=== PATIENT | female | born 1945 | race Caucasian/White ===

== ENCOUNTER → 2016-11-26 | Outpatient (CLI) | payer MEDICARE, OTHER ==
[2016-11-26 14:09] VITALS: BP 127/73; PULSE 71; RESP 18; TEMP 97.9
--- NOTE | 2016-11-26 14:26 | P.PN ---
Progress Note - Text Patient returns for followup for chronic back, buttock, and LLE (down to toes) pain with numbness/tingling. Patient has been absent from our clinic due to having arthroscopic knee surgery but has finished with PT. Patient recently underwent L L4 + L5 TFESI and cluneal nerve block, the latter of which she believes helped her more. Patient continues on [place] medications for pain from PCP with good relief. Patient denies adverse drug effects from medications. Today, pt denies new-onset weakness, bowel/bladder incontinence, or any other signs or symptoms of cauda equina syndrome. There are no signs of acute intoxication, and no indications of medication diversion or overuse. In addition to above, 13-point review of systems is also negative for chest pain , shortness of breath, changes in vision, changes in hearing, new onset weakness , abdominal pain, diarrhea, extreme fatigue, malaise, fever, skin changes, homicidal or suicidal ideation, or bowel or bladder incontinence. Vital Signs: Reviewed in EMR Gen: WDWN, AAOx3, NAD HEENT: NCAT, EOMI, hearing grossly normal Pulm: resp unlabored Abd: soft, NT, ND Neck: supple, trachea midline ROM in flexion lumbar spine: reduced ROM in extension lumbar spine: reduced Lumbar paravertebral tenderness: + Facet loading: + L side SI joint tenderness: + L side Willam's test: + L side, neg R side Straight leg raise: neg bilateral Neuro: CN II-XII grossly intact, muscle strength lower extremities PRESERVED Imaging: Reviewed in EMR Assessment: 1. cluneal neuralgia 2. lumbar radiculopathy 3. lumbar PLPS Plan: 1. Explanation: Opioid and psychological risk scores were reviewed. Diagnoses , prognoses, and multiple treatment options including but not limited to physical therapy, interventional therapies, adjuvant medical therapies, narcotic medication therapies, and surgery were discussed with the patient and all questions were answered to the patient's satisfaction. 2. Opioid agreement: no opioids prescribed today 3. Counseling: The patient was counseled extensively on BODY MASS INDEX, EXERCISE. Specifically, the patient was instructed regarding the importance of smoking cessation, obesity, and exercise in the context of both chronic pain and overall health. 4. Procedures: left superior cluneal nerve blocks 5. Consultations: None 6. Investigations: None 7. Medications: none prescribed 8. Disposition: f/u for procedure as scheduled PQRS measures: 1-Patient's medications are documented in the chart. 2-Tobacco use is negative 3-Patient has not had a pneumococcal vaccine. 4-Advanced care planning discussed, patient unable to give. 5-Opioid contract NOT signed with the patient. 6-Pain positive, follow-up visit or procedure scheduled 7-Patient's blood pressure measured and documented, and patient will follow up with the primary care due to hypertension. 8-Patient's weight was measured, and body mass index ABOVE the normal limits, and counseling was done. Patient instructed to follow up with PCP. 9-Patient WAS NOT identified as an unhealthy alcohol user.
== END ==
LOC: PNWHC3 13:49
PROVIDERS: ATTEND Anesthesiology
DX: M54.16 Radiculopathy, lumbar region (principal); G58.8 Other specified mononeuropathies; G97.1 Other reaction to spinal and lumbar puncture; Z87.891 Personal history of nicotine dependence
CPT/HCPCS: 99211

== ENCOUNTER 2017-01-01 09:57 | Day surgery (SDC) | payer MEDICARE, OTHER ==
[2016-12-27 15:53] VITALS: BMI 31.4
[~2017-01-01 09:57] MED LIST: LACTATED RINGERS 1,000 ML IV SCH
[2017-01-01 10:23] VITALS: RESP 16; TEMP 98
[2017-01-01] MEDS ORDERED: LIDOCAINE 1% 20 ML VIAL (10MG/ML) FOR IV START INTRADERMA ONE (10:33)
[2017-01-01] MEDS ORDERED: TRIAMCINOLONE ACETONIDE 40 MG/ML 1 ML VIAL ONE (10:37)
[2017-01-01] MEDS ORDERED: fentaNYL (PF) 50 MCG/ML 2 ML AMP ONE (10:37)
[2017-01-01] MEDS ORDERED: MIDAZOLAM 2 MG/2 ML VIAL ONE (10:37)
[2017-01-01] MEDS ORDERED: BUPIVACAINE (PF) 0.5% 30 ML VIAL ONE (10:37)
--- NOTE | 2017-01-01 11:10 | FL ---
Fluoroscopy HISTORY: Pain 7 seconds fluoroscopy time supplied to the referring clinician. 7 intraoperative C-arm images docume nt the procedure. See dictated report from anesthesia.
[2017-01-01 11:15] VITALS: BP 129/74; PULSE 61
[2017-01-01] MEDS ORDERED: IV FLUID CONTINUATION 1,000 ML IV ONE (11:15)
--- NOTE | 2017-01-01 14:33 | P.PCN ---
Date of Procedure: 01/01/17 Preoperative Diagnosis: Postoperative Diagnosis: Procedure(s) Performed: Implants: Surgeon: Nilo Jackson Pathology: none sent Condition: stable Disposition: PACU Indications for Procedure: Operative Findings: Description of Procedure: PREOPERATIVE DIAGNOSIS: Cluneal nerve entrapment and neuralgia, left side. POSTOPERATIVE DIAGNOSIS: same PROCEDURE Left superior cluneal nerve steroid injection under fluoroscopic guidance. Fluoroscopy was used to optimize visualization and maximize patient's safety. ANESTHESIA: Local with 1% lidocaine; IV sedation with Versed and fentanyl EBL: Minimal PROCEDURE INDICATION: The patient with left hip and buttock pain that has been unresponsive to conservative management. Patient presents for left superior cluneal NB today; no use of blood thinners. PROCEDURE DESCRIPTION / TECHNIQUE: The patient was seen and identified in the preoperative area. Risks, benefits, complications, and alternatives were discussed with the patient, with risks including but not limited to bleeding, infection, nerve damage, incomplete pain relief, and ALLERGIC reactions to medications. The patient agreed to proceed with the procedure and signed the consent after all questions were answered. IV was started, and vital signs were stable. Patient was taken to the OR and time out was completed to verify proper patient , proper procedure, laterality pain, and ALLERGIES to medications. The patient was placed in the prone position on procedure table and a pillow was placed under the abdomen to reduce lumbar lordosis. The lumbosacral area on the left side was prepped and draped in the usual sterile fashion. Critical pause was taken. Vital signs were closely monitored during the procedure. Conscious sedation was used during the procedure to decrease patients anxiety. Using anterior-posterior fluoroscopy, the left iliac crest was identified and the skin over this site was marked and then infiltrated with 1% lidocaine subcutaneously. Subsequently, a 22-gauge 3.5-inch spinal needle was inserted and advanced toward the top of the iliac crest guided by AP and lateral fluoroscopy. Once contact was made with periosteum, aspiration was performed, which was negative, and 1 ml of a 8 ml mixture containing 40 mg of Kenalog and 7 ml of preservative free bupivacaine 0.5% solution was injected. The needle was then walked along the top of the iliac crest in both medial and lateral directions, and the remainder of the medication was injected in 1 ml increments after negative aspirations and in the absence of paresthesias at seven other locations atop the iliac crest as viewed on fluoroscopy. After completion of the procedure, needle was withdrawn intact, skin was cleansed, and bandages were applied. COMPLICATIONS: None COMMENTS: DISPOSITION / PLANS: The patient was placed in a supine position and transferred to the recovery area in a stable condition for observation. There was no evidence of lower extremity motor or sensory deficit after the procedure. Patient was discharged from the recovery room after meeting discharge criteria. Home discharge instructions were given to the patient by the staff. The patient was reexamined prior to discharge. The patient will schedule a repeat left superior cluneal nerve block in 4-6 weeks.
== END 2017-01-01 11:22 | disposition home or self-care (01) ==
LOC: ORPAIN 09:57
PROVIDERS: ATTEND Anesthesiology
DX: G89.29 Other chronic pain (principal); G58.8 Other specified mononeuropathies; Z79.891 Long term (current) use of opiate analgesic; Z79.899 Other long term (current) drug therapy; Z88.0 Allergy status to penicillin
CPT/HCPCS: 64450; J2250; J3301; J3010

== ENCOUNTER 2017-01-23 09:28 | Day surgery (SDC) | payer MEDICARE, OTHER ==
[2017-01-17 16:19] VITALS: BMI 31.4
[2017-01-23 09:37] VITALS: TEMP 98.2
[2017-01-23] MEDS ORDERED: LIDOCAINE 1% 20 ML VIAL (10MG/ML) FOR IV START INTRADERMA ONE (09:40)
--- NOTE | 2017-01-23 10:28 | P.PCN ---
Date of Procedure: 01/23/17 Preoperative Diagnosis: Low back pain and left cluneal nerve entrapment syndrome Postoperative Diagnosis: Same as above Procedure(s) Performed: Left superior cluneal nerve block under fluoroscopic guidance Implants: Anesthesia: other (Local with moderate sedation) Surgeon: Lavonne Ruth Pathology: none sent Condition: stable Disposition: PACU Indications for Procedure: Operative Findings: Description of Procedure: The patient was seen in preop holding area consent was obtained and this was brought into the procedure when placed in prone position. Skin was prepped with Betadine 3 and draped in a sterile manner. Lidocaine 1% was used to numb the skin up at the target point that was chosen as follows: The T8 crest was identified on the AP view of fluoroscopy on the left side of the spine and then it point about 9 cm lateral to the spinous processes at the iliac crest level was identified which corresponds to the superior edge of the iliac crest on the left side. I then used 22-gauge 3-1/2 inch Qu[place]ke spinal needle to go through the skin and to The Periosteum at the Iliac Crest and Then Injected 9 mls of Marcaine 0.25% +40 Mg of Kenalog. Patient tolerated procedure well.
[2017-01-23] MEDS ORDERED: IV FLUID CONTINUATION 600 ML IV ONE (10:35)
[2017-01-23 10:50] VITALS: BP 126/71; PULSE 63; RESP 16
--- NOTE | 2017-01-24 16:04 | FL ---
Fluoroscopy HISTORY: Pain 3 seconds fluoroscopy time supplied to the referring clinician. 2 intraoperative C-arm images docume nt the procedure. See dictated report from anesthesia.
== END 2017-01-23 11:00 | disposition home or self-care (01) ==
LOC: ORPAIN 09:28
PROVIDERS: ATTEND Anesthesiology
DX: M54.5 Low back pain (principal); G58.8 Other specified mononeuropathies; I10 Essential (primary) hypertension; Z88.0 Allergy status to penicillin
CPT/HCPCS: 64450; 99152; J2250; J3301; J3010

== ENCOUNTER → 2017-03-11 | Outpatient (CLI) | payer MEDICARE, OTHER ==
[2017-03-11 10:46] VITALS: BP 151/85; PULSE 62; RESP 16; TEMP 97.9
--- NOTE | 2017-03-11 11:03 | P.PN ---
Progress Note - Text Patient returns for followup for chronic back, buttock pain. Patient recently underwent left superior cluneal nerve block x 2 with excellent relief. Patient continues on [place] medications for pain from PCP with good relief. Patient denies adverse drug effects from medications. Today, pt denies new-onset weakness, bowel/bladder incontinence, or any other signs or symptoms of cauda equina syndrome. There are no signs of acute intoxication, and no indications of medication diversion or overuse. In addition to above, 13-point review of systems is also negative for chest pain , shortness of breath, changes in vision, changes in hearing, new onset weakness , abdominal pain, diarrhea, extreme fatigue, malaise, fever, skin changes, homicidal or suicidal ideation, or bowel or bladder incontinence. Vital Signs: Reviewed in EMR Gen: WDWN, AAOx3, NAD HEENT: NCAT, EOMI, hearing grossly normal Pulm: resp unlabored Abd: soft, NT, ND Neck: supple, trachea midline ROM in flexion lumbar spine: reduced ROM in extension lumbar spine: reduced Lumbar paravertebral tenderness: + Facet loading: + L side SI joint tenderness: + L side Willam's test: + L side, neg R side Straight leg raise: neg bilateral Neuro: CN II-XII grossly intact, muscle strength lower extremities PRESERVED Imaging: Reviewed in EMR Assessment: 1. cluneal neuralgia 2. lumbar radiculopathy 3. lumbar PLPS Plan: 1. Explanation: Opioid and psychological risk scores were reviewed. Diagnoses , prognoses, and multiple treatment options including but not limited to physical therapy, interventional therapies, adjuvant medical therapies, narcotic medication therapies, and surgery were discussed with the patient and all questions were answered to the patient's satisfaction. 2. Opioid agreement: no opioids prescribed today 3. Counseling: The patient was counseled extensively on BODY MASS INDEX, EXERCISE. Specifically, the patient was instructed regarding the importance of smoking cessation, obesity, and exercise in the context of both chronic pain and overall health. 4. Procedures: repeat left superior cluneal nerve block in 8 weeks 5. Consultations: None 6. Investigations: None 7. Medications: none prescribed 8. Disposition: f/u for procedure as scheduled PQRS measures: 1-Patient's medications are documented in the chart. 2-Tobacco use is negative 3-Patient has not had a pneumococcal vaccine. 4-Advanced care planning discussed, patient unable to give. 5-Opioid contract NOT signed with the patient. 6-Pain positive, follow-up visit or procedure scheduled 7-Patient's blood pressure measured and documented, and patient will follow up with the primary care due to hypertension. 8-Patient's weight was measured, and body mass index ABOVE the normal limits, and counseling was done. Patient instructed to follow up with PCP. 9-Patient WAS NOT identified as an unhealthy alcohol user.
== END ==
LOC: PNWHC3 10:02
PROVIDERS: ATTEND Anesthesiology
DX: M54.16 Radiculopathy, lumbar region (principal); G58.8 Other specified mononeuropathies; Z79.891 Long term (current) use of opiate analgesic
CPT/HCPCS: 99211

== ENCOUNTER → 2017-03-11 | Outpatient (CLI) | payer MEDICARE, OTHER ==
--- NOTE | 2017-03-13 12:13 | MM ---
Reason for exam: screening (asymptomatic). Last mammogram was performed 1 year and 2 months ago. History: Patient is postmenopausal. Family history of breast cancer in cousin at age 30 and breast cancer in aunt at age 60. Benign excisional biopsy of the right breast. Took estrogen for 3 years 9 months beginning at age 33. Physical Findings: A clinical breast exam by your physician is recommended on an annual basis and results should be correlated with mammographic findings. MG 3D Screening Mammo W/Cad Bilateral CC and MLO view(s) were taken. Prior study comparison: January 05, 2016, bilateral MG 3d screening mammo w/cad. November 09, 2010, bilateral digital screening mammo w/CAD. There are scattered fibroglandular densities. No suspicious abnormality. Stable upper outer quadrant focal asymmetry on right breast. No significant changes when compared with prior studies. ASSESSMENT: Benign, BI-RAD 2 RECOMMENDATION: Routine screening mammogram of both breasts in 1 year.
== END | disposition home or self-care (01) ==
LOC: RADMAMWWP 11:16
PROVIDERS: ATTEND Internal Medicine
DX: Z12.31 Encounter for screening mammogram for malignant neoplasm of breast (principal)
CPT/HCPCS: 77063; G0202

== ENCOUNTER → 2017-06-09 | Outpatient (CLI) | payer MEDICARE, OTHER ==
[2017-06-09 13:11] VITALS: BP 152/81; PULSE 85; RESP 16
--- NOTE | 2017-06-09 13:24 | P.PN ---
Progress Note - Text Progress Note Date: 06/09/17 This is a 72-year-old female with history of lumbar surgery and axial lower back pain. The patient denies any weakness in the lower extremities or any bowel or bladder dysfunction. She also denies any paresthesia in the lower extremities. Her lower back pain has improved significantly after the cluneal nerve injections. She is alert oriented 3 in no apparent distress. We will follow up with the patient as needed in the future. PQRS measures: 1-Patient's medications are documented in the chart. 2-Tobacco use is negative, counseling given 3-Patient has had a pneumococcal vaccine. 4-Advanced care planning discussed, patient unable to give 5-Opioid contract : We do not prescribe opioids to the patient 6-Pain positive, follow-up visit or procedure scheduled 7-Patient's blood pressure measured and documented within normal limits. 8-Patient's weight was measured, and body mass index ABOVE the normal limits, and counseling was done. Patient instructed to follow up with PCP. 9-Patient WAS NOT identified as an unhealthy alcohol user.
== END | disposition home or self-care (01) ==
LOC: PNWHC3 12:51
PROVIDERS: ATTEND Anesthesiology
DX: M54.5 Low back pain (principal)
CPT/HCPCS: 99211

== ENCOUNTER 2017-08-06 09:25 | Day surgery (SDC) | payer MEDICARE, OTHER ==
[2017-07-31 13:14] VITALS: BMI 32.5
[2017-08-06] MEDS ORDERED: LACTATED RINGERS 1,000 ML IV SCH (10:15)
[2017-08-06] MEDS ORDERED: LIDOCAINE 1% 20 ML VIAL (10MG/ML) FOR IV START INTRADERMA ONE (10:47)
[2017-08-06 10:49] VITALS: RESP 18; TEMP 98.3
--- NOTE | 2017-08-06 11:00 | P.PCN ---
Date of Procedure: 08/06/17 Surgeon: Nilo Jackson Pathology: none sent Condition: stable Disposition: PACU Description of Procedure: PREOPERATIVE DIAGNOSIS: Cluneal nerve entrapment and neuralgia, left side. POSTOPERATIVE DIAGNOSIS: same PROCEDURE Left superior cluneal nerve steroid injection under fluoroscopic guidance. Fluoroscopy was used to optimize visualization and maximize patient's safety. ANESTHESIA: Local with 1% lidocaine; IV sedation with Versed and fentanyl EBL: Minimal PROCEDURE INDICATION: The patient with left hip and buttock pain that has been unresponsive to conservative management. Patient presents for left superior cluneal NB today; no use of blood thinners. Three months' relief from last SCNB. PROCEDURE DESCRIPTION / TECHNIQUE: The patient was seen and identified in the preoperative area. Risks, benefits, complications, and alternatives were discussed with the patient, with risks including but not limited to bleeding, infection, nerve damage, incomplete pain relief, and allergic reactions to medications. The patient agreed to proceed with the procedure and signed the consent after all questions were answered. IV was started, and vital signs were stable. Patient was taken to the OR and time out was completed to verify proper patient , proper procedure, laterality pain, and allergies to medications. The patient was placed in the prone position on procedure table and a pillow was placed under the abdomen to reduce lumbar lordosis. The lumbosacral area on the left side was prepped and draped in the usual sterile fashion. Critical pause was taken. Vital signs were closely monitored during the procedure. Conscious sedation was used during the procedure to decrease patients anxiety. Using anterior-posterior fluoroscopy, the left iliac crest was identified and the skin over this site was marked and then infiltrated with 1% lidocaine subcutaneously. Subsequently, a 22-gauge 3.5-inch spinal needle was inserted and advanced toward the top of the iliac crest guided by AP and lateral fluoroscopy. Once contact was made with periosteum, aspiration was performed, which was negative, and 1 ml of a 8 ml mixture containing 40 mg of Kenalog and 7 ml of preservative free bupivacaine 0.5% solution was injected. The needle was then walked along the top of the iliac crest in both medial and lateral directions, and the remainder of the medication was injected in 1 ml increments after negative aspirations and in the absence of paresthesias at seven other locations atop the iliac crest as viewed on fluoroscopy. After completion of the procedure, needle was withdrawn intact, skin was cleansed, and bandages were applied. COMPLICATIONS: None COMMENTS: DISPOSITION / PLANS: The patient was placed in a supine position and transferred to the recovery area in a stable condition for observation. There was no evidence of lower extremity motor or sensory deficit after the procedure. Patient was discharged from the recovery room after meeting discharge criteria. Home discharge instructions were given to the patient by the staff. The patient was reexamined prior to discharge. The patient will schedule a follow-up in clinic in 4-6 weeks to discuss recent left lower extremity pain.
[2017-08-06 11:28] VITALS: PULSE 70
[2017-08-06 11:50] VITALS: BP 103/58
[2017-08-06] MEDS ORDERED: IV FLUID CONTINUATION 950 ML IV ONE (11:51)
--- NOTE | 2017-08-06 13:13 | FL ---
Fluoroscopy HISTORY: Pain 4 seconds fluoroscopy time supplied to the referring clinician. 7 intraoperative C-arm images docume nt the procedure. See dictated report from anesthesia.
== END 2017-08-06 11:55 | disposition home or self-care (01) ==
LOC: ORPAIN 09:25
PROVIDERS: ATTEND Anesthesiology
DX: G89.29 Other chronic pain (principal); I10 Essential (primary) hypertension; Z91.09 Other allergy status, other than to drugs and biological substances
CPT/HCPCS: 64450; J2250; J3301; J3010

== ENCOUNTER → 2017-09-01 | Outpatient (CLI) | payer MEDICARE, OTHER ==
[2017-09-01 14:25] VITALS: BP 151/80; PULSE 74; RESP 16; TEMP 98
--- NOTE | 2017-09-01 14:45 | P.PN ---
Progress Note - Text Progress Note Date: 09/01/17 Patient returns for followup for chronic back, buttock pain. Patient recently underwent left superior cluneal nerve block x 2 with excellent relief. Patient continues on [place] medications for pain from PCP with good relief. Patient denies adverse drug effects from medications. Today, pt denies new-onset weakness, bowel/bladder incontinence, or any other signs or symptoms of cauda equina syndrome. There are no signs of acute intoxication, and no indications of medication diversion or overuse. In addition to above, 13-point review of systems is also negative for chest pain , shortness of breath, changes in vision, changes in hearing, new onset weakness , abdominal pain, diarrhea, extreme fatigue, malaise, fever, skin changes, homicidal or suicidal ideation, or bowel or bladder incontinence. Vital Signs: Reviewed in EMR Gen: WDWN, AAOx3, NAD HEENT: NCAT, EOMI, hearing grossly normal Pulm: resp unlabored Abd: soft, NT, ND Neck: supple, trachea midline ROM in flexion lumbar spine: reduced ROM in extension lumbar spine: reduced Lumbar paravertebral tenderness: + Facet loading: + L side SI joint tenderness: + L side Willam's test: + L side, neg R side Straight leg raise: neg bilateral Neuro: CN II-XII grossly intact, muscle strength lower extremities PRESERVED Imaging: Reviewed in EMR Assessment: 1. cluneal neuralgia 2. lumbar radiculopathy 3. lumbar PLPS Plan: 1. Explanation: Opioid and psychological risk scores were reviewed. Diagnoses , prognoses, and multiple treatment options including but not limited to physical therapy, interventional therapies, adjuvant medical therapies, narcotic medication therapies, and surgery were discussed with the patient and all questions were answered to the patient's satisfaction. 2. Opioid agreement: no opioids prescribed today 3. Counseling: The patient was counseled extensively on BODY MASS INDEX, EXERCISE. Specifically, the patient was instructed regarding the importance of smoking cessation, obesity, and exercise in the context of both chronic pain and overall health. 4. Procedures: repeat left superior cluneal nerve block in 8 weeks 5. Consultations: None 6. Investigations: None 7. Medications: none prescribed 8. Disposition: f/u for procedure as scheduled; will plan to repeat L SCNB for patient approximately every 12 weeks PQRS measures: 1-Patient's medications are documented in the chart. 2-Tobacco use is negative 3-Patient has not had a pneumococcal vaccine. 4-Advanced care planning discussed, patient unable to give. 5-Opioid contract NOT signed with the patient. 6-Pain positive, follow-up visit or procedure scheduled 7-Patient's blood pressure measured and documented, and patient will follow up with the primary care due to hypertension. 8-Patient's weight was measured, and body mass index ABOVE the normal limits, and counseling was done. Patient instructed to follow up with PCP. 9-Patient WAS NOT identified as an unhealthy alcohol user.
== END | disposition home or self-care (01) ==
LOC: PNWHC3 14:05
PROVIDERS: ATTEND Anesthesiology
DX: G89.29 Other chronic pain (principal); M54.9 Dorsalgia, unspecified; M54.16 Radiculopathy, lumbar region; G97.1 Other reaction to spinal and lumbar puncture; Z79.891 Long term (current) use of opiate analgesic
CPT/HCPCS: 99211

== ENCOUNTER 2017-11-24 06:25 | Day surgery (SDC) | payer MEDICARE, OTHER ==
[2017-11-20 11:41] VITALS: BMI 30.7
[2017-11-24 07:16] VITALS: TEMP 96.8
[2017-11-24] MEDS ORDERED: LIDOCAINE 1% 20 ML VIAL (10MG/ML) FOR IV START INTRADERMA ONE (07:20)
--- NOTE | 2017-11-24 07:41 | P.PCN ---
Date of Procedure: 11/24/17 Surgeon: Lavonne Ruth Description of Procedure: PREOPERATIVE DIAGNOSIS: Cluneal nerve entrapment and neuralgia, left side. POSTOPERATIVE DIAGNOSIS: same PROCEDURE Left superior cluneal nerve steroid injection under fluoroscopic guidance. Fluoroscopy was used to optimize visualization and maximize patient's safety. ANESTHESIA: Local with 1% lidocaine; IV conscious sedation with Versed and fentanyl EBL: Minimal PROCEDURE INDICATION: The patient with left hip and buttock pain that has been unresponsive to conservative management. Patient presents for left superior cluneal NB today; no use of blood thinners. Three months' relief from last SCNB. PROCEDURE DESCRIPTION / TECHNIQUE: The patient was seen and identified in the preoperative area. Risks, benefits, complications, and alternatives were discussed with the patient, with risks including but not limited to bleeding, infection, nerve damage, incomplete pain relief, and allergic reactions to medications. The patient agreed to proceed with the procedure and signed the consent after all questions were answered. IV was started, and vital signs were stable. Patient was taken to the OR and time out was completed to verify proper patient , proper procedure, laterality pain, and allergies to medications. The patient was placed in the prone position on procedure table and a pillow was placed under the abdomen to reduce lumbar lordosis. The lumbosacral area on the left side was prepped and draped in the usual sterile fashion. Critical pause was taken. Vital signs were closely monitored during the procedure. Conscious sedation was used during the procedure to decrease patients anxiety. Using anterior-posterior fluoroscopy, the left iliac crest was identified and the skin over this site was marked and then infiltrated with 1% lidocaine subcutaneously. Subsequently, a 22-gauge 3.5-inch spinal needle was inserted and advanced toward the top of the iliac crest guided by AP and lateral fluoroscopy. Once contact was made with periosteum, aspiration was performed, which was negative, and 1 ml of a 8 ml mixture containing 40 mg of Kenalog and 7 ml of preservative free bupivacaine 0.5% solution was injected. The needle was then walked along the top of the iliac crest in both medial and lateral directions, and the remainder of the medication was injected in 1 ml increments after negative aspirations and in the absence of paresthesias at seven other locations atop the iliac crest as viewed on fluoroscopy. After completion of the procedure, needle was withdrawn intact, skin was cleansed, and bandages were applied. COMPLICATIONS: None COMMENTS: DISPOSITION / PLANS: The patient was placed in a supine position and transferred to the recovery area in a stable condition for observation. There was no evidence of lower extremity motor or sensory deficit after the procedure. Patient was discharged from the recovery room after meeting discharge criteria. Home discharge instructions were given to the patient by the staff. The patient was reexamined prior to discharge. The patient will follow up in order clinic in 4-8 weeks.
[2017-11-24] MEDS ORDERED: IV FLUID CONTINUATION 700 ML IV ONE (07:48)
[2017-11-24 07:57] VITALS: RESP 18
--- NOTE | 2017-11-24 08:04 | FL ---
EXAMINATION TYPE: FL guided pain mgmt statistic DATE OF EXAM: 11/24/2017 HISTORY: Flouroscopy time 4 seconds of fluoroscopy provided. IMPRESSION: 1. Fluoroscopy time.
[2017-11-24 08:14] VITALS: BP 121/73; PULSE 77
== END 2017-11-24 08:24 | disposition home or self-care (01) ==
LOC: ORPAIN 06:25
PROVIDERS: ATTEND Anesthesiology
DX: G58.8 Other specified mononeuropathies (principal); I10 Essential (primary) hypertension; Z88.0 Allergy status to penicillin
CPT/HCPCS: 64450; J2250; J1030; J3010

== ENCOUNTER → 2019-11-01 | Outpatient (CLI) | payer MEDICARE, OTHER ==
[2019-11-01 10:16] LABS: Basophils # (A) 0.1 k/uL (0-0.2); Basophils % (A) 1 %; Eosinophils # (A) 0.3 k/uL (0-0.7); Eosinophils % (A) 4 %; HCT 41.3 % (34.0-46.0); HGB 13.2 gm/dL (11.4-16.0); Lymphocytes # (A) 1.9 k/uL (1.0-4.8); Lymphocytes % (A) 26 %; MCH 30.8 pg (25.0-35.0); Mean Platelet Volume 7.4; Monocytes # (A) 0.4 k/uL (0-1.0); Monocytes % (A) 6 %; Neutrophils # (A) 4.5 k/uL (1.3-7.7); Neutrophils % (A) 61 %; Platelet Count 207 k/uL (150-450); RBC 4.31 m/uL (3.80-5.40); RDW 14.2 % (11.5-15.5); WBC 7.3 k/uL (3.8-10.6)
[2019-11-01 10:41] LABS: Protein/Creatinine Ratio,Urine 0.082
[2019-11-01 15:39] LABS: Ferritin 107.3 ng/mL (10.0-291.0)
[2019-11-01 15:43] LABS: % Iron Saturation 16.56 (12.00-45.00); African American GFR (CKD) 24.6 (60.0-200.0); Albumin 4.3 g/dL (3.80-4.90); Anion Gap 7.9 mmol/L (4.00-12.00); BUN/Creat Ratio 14.09 Ratio (12.00-20.00); Calcium 9.9 mg/dL (8.7-10.3); Carbon Dioxide 27.1 mmol/L (21.6-31.8); Non-African American GFR(CKD) 21.2 (60.0-200.0); Phosphorus 3.7 mg/dL (2.4-5.1); Potassium 4.6 mmol/L (3.5-5.5)
== END | disposition home or self-care (01) ==
LOC: LABWHC1 09:56
PROVIDERS: ATTEND Internal Medicine Nephrology
DX: E55.9 Vitamin D deficiency, unspecified (principal); N18.4 Chronic kidney disease, stage 4 (severe); N25.81 Secondary hyperparathyroidism of renal origin; N39.0 Urinary tract infection, site not specified; D64.9 Anemia, unspecified; R80.9 Proteinuria, unspecified
CPT/HCPCS: 36415; 80048; 82040; 82306; 82570; 82728; 83540; 83550; 83970; 84100; 84156; 85025

== ENCOUNTER → 2021-03-05 | Outpatient (CLI) | payer MEDICARE, OTHER ==
--- NOTE | 2021-03-06 10:20 | MM ---
Reason for exam: screening (asymptomatic). Last mammogram was performed 4 years ago. History: Patient is postmenopausal. Family history of breast cancer in cousin at age 30 and breast cancer in aunt at age 60. Benign excisional biopsy of the right breast. Took estrogen for 3 years 9 months beginning at age 33. Physical Findings: A clinical breast exam by your physician is recommended on an annual basis and results should be correlated with mammographic findings. MG 3D Screening Mammo W/Cad Bilateral CC and MLO view(s) were taken. Prior study comparison: March 11, 2017, bilateral MG 3d screening mammo w/cad. January 05, 2016, bilateral MG 3d screening mammo w/cad. The breast tissue is heterogeneously dense. This may lower the sensitivity of mammography. Stable benign calcifications. There is no discrete abnormality. No significant changes when compared with prior studies. ASSESSMENT: Benign, BI-RAD 2 RECOMMENDATION: Routine screening mammogram of both breasts in 1 year.
== END | disposition home or self-care (01) ==
LOC: RADMAMWWP 15:51
PROVIDERS: ATTEND Family Medicine
DX: Z12.31 Encounter for screening mammogram for malignant neoplasm of breast (principal); Z78.0 Asymptomatic menopausal state; Z80.3 Family history of malignant neoplasm of breast
CPT/HCPCS: 77063; 77067

== ENCOUNTER 2021-05-13 04:20 | Emergency (ER) | payer MEDICARE, OTHER ==
[2021-05-13 04:29] VITALS: PULSE 97; RESP 18
[2021-05-13] MEDS ORDERED: IBUPROFEN 800 MG TAB PO STA (04:37)
[2021-05-13] MEDS ORDERED: PHENAZOPYRIDINE 200 MG TAB PO STA (04:37)
[2021-05-13] MEDS ORDERED: ACETAMINOPHEN TAB 500 MG TAB PO STA (04:37)
--- NOTE | 2021-05-13 04:54 | ED ---
Female Urogenital HPI - General Chief complaint: Urogenital Stated complaint: Urogenital Time Seen by Provider: 05/13/21 04:26 Source: patient, RN notes reviewed, old records reviewed Mode of arrival: ambulatory Limitations: no limitations - History of Present Illness Initial comments: This is a 76-year-old female to emergency department today. Patient Dese for evaluation regards to dysuria severe dysuria with burning with urination. Has a urinary tract in the past this does feel mildly somnolent. She does have nausea but no fevers no vomiting no other abdominal pain noted.. MD Complaint: dysuria, pelvic pain -: hour(s) Location: perineum, suprapubic Severity: moderate Severity scale (1-10): 6 Quality: burning Consistency: constant Improves with: none Worsens with: urination Patient : No Associated Symptoms: dysuria - Related Data Home Medications Medication Instructions Recorded Confirmed hydroCHLOROthiazide [Hydrodiuril] 50 mg PO DAILY 01/24/14 11/24/17 Benazepril HCl [Lotensin] 40 mg PO BID 01/31/14 11/24/17 Calcium Carbonate/Vitamin D3 1 each PO DAILY 03/22/16 11/24/17 [Calcium 600-Vit D3 800 Tab] Hydrocodone/Acetaminophen [[place] 2 tab PO Q6HR PRN 03/22/16 11/24/17 5-325] Gabapentin [Neurontin] 100 mg PO TID 04/18/16 11/24/17 Previous Rx's Medication Instructions Recorded Levofloxacin [Levaquin] 500 mg PO DAILY #7 tab 05/13/21 Allergies Allergy/AdvReac Type Severity Reaction Status Date / Time Penicillins Allergy Rash/Hives Verified 05/13/21 04:29 Review of Systems ROS Statement: Those systems with pertinent positive or pertinent negative responses have been documented in the HPI. ROS Other: All systems not noted in ROS Statement are negative. Past Medical History Past Medical History: GI Bleed, Hypertension, Musculoskeletal Disorder, Osteoarthritis (OA) Additional Past Medical History / Comment(s): CHRONIC LOWER BACK PAIN, NT DOWN LT LEG. History of Any Multi-Drug Resistant Organisms: None Reported Past Surgical History: Appendectomy, Back Surgery, Cholecystectomy, Hysterectomy, Joint Replacement, Tonsillectomy Additional Past Surgical History / Comment(s): MULT PAIN PROCEDURES. TOTAL RIGHT HIP. ARTHROSCOPY LT KNEE Past Anesthesia/Blood Transfusion Reactions: No Reported Reaction Past Psychological History: No Psychological Hx Reported Smoking Status: Former smoker Past Alcohol Use History: None Reported Past Drug Use History: None Reported - Past Family History Mother Family Medical History: No Reported History brothers Family Medical History: Diabetes Mellitus General Exam Limitations: no limitations General appearance: alert, in no apparent distress Head exam: Present: atraumatic, normocephalic, normal inspection Eye exam: Present: normal appearance, PERRL, EOMI. Absent: scleral icterus, conjunctival injection, periorbital swelling ENT exam: Present: normal exam, mucous membranes moist Neck exam: Present: normal inspection. Absent: tenderness, meningismus, lymphadenopathy Respiratory exam: Present: normal lung sounds bilaterally. Absent: respiratory distress, wheezes, rales, rhonchi, stridor Cardiovascular Exam: Present: regular rate, normal rhythm, normal heart sounds. Absent: systolic murmur, diastolic murmur, rubs, gallop, clicks GI/Abdominal exam: Present: soft, normal bowel sounds. Absent: distended, tend erness, guarding, rebound, rigid Extremities exam: Present: normal inspection, full ROM, normal capillary refill. Absent: tenderness, pedal edema, joint swelling, calf tenderness Back exam: Present: normal inspection Neurological exam: Present: alert, oriented X3, CN II-XII intact Psychiatric exam: Present: normal affect, normal mood Skin exam: Present: warm, dry, intact, normal color. Absent: rash Course Vital Signs 05/13/21 05/13/21 05/13/21 04:24 04:57 05:47 Temperature 99.0 F 98.8 F Pulse Rate 97 Respiratory 18 Rate Blood Pressure 200/83 156/77 O2 Sat by Pulse 96 Oximetry - Reevaluation(s) Reevaluation #1: Medical record is reviewed Symptoms improved here in the ER Patient informed of results and questions answered Medical Decision Making - Medical Decision Making 76 female presented with feels like urinary tract infection. Patient does have urinary tract infection here in the ER placed on antibiotics and can be discharged home - Lab Data Lab Results 05/13/21 Range/Units 04:57 Urine Color Yellow Urine Appearance Cloudy H (Clear) Urine pH 6.0 (5.0-8.0) Ur Specific [place] 1.017 (1.001-1.035) Urine Protein 1+ H (Negative) Urine Glucose (UA) Negative (Negative) Urine Ketones Negative (Negative) Urine Blood Large H (Negative) Urine Nitrite Negative (Negative) Urine Bilirubin Negative (Negative) Urine Urobilinogen <2.0 (<2.0) mg/dL Ur Leukocyte Esterase Large H (Negative) Urine RBC >182 H (0-5) /hpf Urine WBC >182 H (0-5) /hpf Urine WBC Clumps Many H (None) /hpf Ur Squamous Epith Cells 1 (0-4) /hpf Urine Bacteria Few H (None) /hpf Urine Mucus Rare H (None) /hpf Disposition Clinical Impression: Urinary tract infection Disposition: HOME SELF-CARE Condition: Good Instructions (If sedation given, give patient instructions): Urinary Tract Infection in Women (ED) Prescriptions: Levofloxacin [Levaquin] 500 mg PO DAILY #7 tab Is patient prescribed a controlled substance at d/c from ED?: No Referrals: Sophie Garcia MD [Primary Care Provider] - 1-2 days
[2021-05-13 05:00] VITALS: BP 156/77
[2021-05-13 05:22] LABS: Appearance,Urine Cloudy (Clear); Bacteria,Urine Few /hpf; Bilirubin,Urine Negative (Negative); Blood,Urine Large (Negative); Color,Urine Yellow; Glucose,Urine (UA) Negative (Negative); Ketones,Urine Negative (Negative); Leukocyte Esterase,Urine Large (Negative); Mucus,Urine Rare /hpf; Nitrite,Urine Negative (Negative); Protein,Urine 1+ (Negative); RBC,Urine >182 /hpf (0-5); Specific Gravity,Urine 1.017 (1.001-1.035); Squamous Epithelial Cell,Urine 1 /hpf (0-4); Urobilinogen,Urine <2.0 mg/dL (<2.0); WBC,Urine >182 /hpf (0-5)
[2021-05-13] MEDS ORDERED: LEVOFLOXACIN 500 MG TAB PO STA (05:39)
[2021-05-13 05:48] VITALS: TEMP 98.8
== END 2021-05-13 05:48 | disposition home or self-care (01) ==
LOC: EC 04:20
DX: N39.0 Urinary tract infection, site not specified (principal); I10 Essential (primary) hypertension; M19.90 Unspecified osteoarthritis, unspecified site; Z83.3 Family history of diabetes mellitus; Z88.0 Allergy status to penicillin; Z90.49 Acquired absence of other specified parts of digestive tract; Z87.891 Personal history of nicotine dependence; Z79.899 Other long term (current) drug therapy
CPT/HCPCS: 81001; 87077; 87086; 87186; 99283

== ENCOUNTER → 2023-05-08 | Outpatient (CLI) | payer MEDICARE, OTHER ==
[2023-05-08 19:54] LABS: Appearance,Urine Clear (Clear); Bilirubin,Urine Negative (Negative); Blood,Urine Negative (Negative); Color,Urine Yellow (Yellow); Ketones,Urine Negative (Negative); Nitrite,Urine Negative (Negative); PH, Urine 5.5; Specific Gravity,Urine 1.009 (1.001-1.030); Urobilinogen,Urine 0.2 E.U./DL
[2023-05-08 20:27] LABS: Microalbumin Creatinine Ratio <21 mg/g Cr (0-30); Urine Creatinine 58.2 mg/dL (28.0-217.0)
[2023-05-08 20:57] LABS: % Iron Saturation 21.38 (12.00-45.00); Albumin 4.2 d/dL (3.8-4.9); BUN/Creat Ratio 13.79 Ratio (12.00-20.00); Blood Urea Nitrogen 33.1 mg/dL (9.0-27.0); Calcium 10.4 mg/dL (8.7-10.3); Carbon Dioxide 25.6 mmol/L (21.6-31.8); Chloride 102 mmol/L (96-109); Glucose 96 mg/dL (70-110); Iron 65 UG/DL (50-170); Magnesium 2.4 mg/dL (1.5-2.4); Phosphorus 4.2 mg/dL (2.4-5.1); Potassium 4.8 mmol/L (3.5-5.5); Sodium 139 mmol/L (135-145); Total Iron Binding Capacity 304 UG/DL (228-460); Uric Acid 7.3 mg/dL (2.9-7.7)
[2023-05-09 01:49] LABS: Basophils # (A) 0.05 X 10*3/uL (0.00-0.10); Basophils % (A) 0.6 %; Eosinophils # (A) 0.34 X 10*3/uL (0.04-0.35); Eosinophils % (A) 4.1 %; HCT 40.5 % (37.2-46.3); HGB 12.5 d/dL (12.0-15.0); Lymphocytes # (A) 1.92 X 10*3/uL (0.90-5.00); Lymphocytes % (A) 23.4 %; MCH 30.8 pg (27.0-32.0); MCHC 30.9 d/dL (32.0-37.0); MCV 99.8 FL (80.0-97.0); Mean Platelet Volume 10.5 FL (9.5-12.2); Monocytes # (A) 0.57 X 10*3/uL (0.20-1.00); NRBC Per 100 WBC 0 X 10*3/uL (0.00-0.01); Neutrophils # (A) 5.29 X 10*3/uL (1.80-7.70); Neutrophils % (A) 64.5 %; Platelet Count 236 X 10*3/uL (140-440); RBC 4.06 X 10*6/uL (4.10-5.20); RDW 14.1 % (11.5-14.5)
== END | disposition home or self-care (01) ==
LOC: LABWHC1 14:05
PROVIDERS: ATTEND Nurse Practitioner Family
DX: N25.81 Secondary hyperparathyroidism of renal origin (principal); N18.4 Chronic kidney disease, stage 4 (severe); D63.1 Anemia in chronic kidney disease; E55.9 Vitamin D deficiency, unspecified; N39.0 Urinary tract infection, site not specified; M10.9 Gout, unspecified
CPT/HCPCS: 36415; 80048; 81003; 82040; 82043; 82306; 82570; 82728; 83540; 83550; 83735; 83970; 84100; 84550; 85025

== ENCOUNTER 2023-12-13 10:05 | Emergency (ER) | payer MEDICARE, OTHER ==
--- NOTE | 2023-12-13 10:50 | ED ---
Dizziness HPI - General Chief Complaint: Dizziness Stated Complaint: Dizziness Time Seen by Provider: 12/13/23 10:50 Source: patient, RN notes reviewed Mode of arrival: ambulatory Limitations: no limitations - History of Present Illness Initial Comments: 78-year-old female presented to the ER with a chief complaint of dizziness. Patient reports yesterday morning when getting out of bed to go to the bathroom upon standing she felt extremely flush and dizzy. She describes her dizziness as the room spinning. She states she was able to make it to the bathroom to sit down and after about 10 minutes her dizziness subsided. Patient took her medications and upon standing had a similar episode of flushness and dizziness. Patient reports she feels "woozy" as in nauseous. She reports while washing her hair this morning upside down upon returning her head to normal position she had another dizzy episode which brought her into the ER. She denies any chest pain/palpitations, shortness of breath, abdominal pain, urinary complaint, constipation/diarrhea, fevers, or chills. Patient has a past medical history of CKD and is no cirrently on dialysis. No hx of vertigo, cardiac, diabetes. - Related Data Home Medications Medication Instructions Recorded Confirmed Ferrous Sulfate [Feosol] 325 mg PO Q48H 12/13/23 12/13/23 Furosemide [Lasix] 40 mg PO DAILY 12/13/23 12/13/23 Hydrocodone/Acetaminophen 5-300mg 1 tab PO BID PRN 12/13/23 12/13/23 allopurinoL [Zyloprim] 100 mg PO DAILY 12/13/23 12/13/23 calcitrioL [Rocaltrol] 0.25 mcg PO MOTUWETHFR 12/13/23 12/13/23 calcitrioL [Rocaltrol] 0.5 mcg PO SUSA 12/13/23 12/13/23 carvediloL [Coreg] 25 mg PO BID 12/13/23 12/13/23 Previous Rx's Medication Instructions Recorded Meclizine [Antivert] 25 mg PO TID PRN #15 tab 12/13/23 Allergies Allergy/AdvReac Type Severity Reaction Status Date / Time Penicillins Allergy Rash/Hives Verified 12/13/23 11:55 Review of Systems ROS Statement: Those systems with pertinent positive or pertinent negative responses have been documented in the HPI. ROS Other: All systems not noted in ROS Statement are negative. Past Medical History Past Medical History: GI Bleed, Hypertension, Musculoskeletal Disorder, Osteoarthritis (OA), Renal Disease Additional Past Medical History / Comment(s): CHRONIC LOWER BACK PAIN, NT DOWN LT LEG. History of Any Multi-Drug Resistant Organisms: None Reported Past Surgical History: Appendectomy, Back Surgery, Cholecystectomy, Hysterec [place], Joint Replacement, Tonsillectomy Additional Past Surgical History / Comment(s): MULT PAIN PROCEDURES. TOTAL RIGHT HIP. ARTHROSCOPY LT KNEE Past Anesthesia/Blood Transfusion Reactions: No Reported Reaction Past Psychological History: No Psychological Hx Reported Smoking Status: Former smoker Past Alcohol Use History: None Reported Past Drug Use History: None Reported - Past Family History Mother Family Medical History: No Reported History brothers Family Medical History: Diabetes Mellitus General Exam Limitations: no limitations General appearance: alert, in no apparent distress Eye exam: Present: normal appearance, PERRL, EOMI. Absent: scleral icterus, con junctival injection, periorbital swelling Pupils: Present: normal accommodation ENT exam: Present: normal exam, normal oropharynx, mucous membranes moist, TM's normal bilaterally Respiratory exam: Present: normal lung sounds bilaterally. Absent: respiratory distress, wheezes, rales, rhonchi, stridor Cardiovascular Exam: Present: regular rate, normal rhythm, normal heart sounds. Absent: systolic murmur, diastolic murmur, rubs, gallop, clicks Extremities exam: Present: normal inspection, full ROM, normal capillary refill. Absent: tenderness, pedal edema, joint swelling, calf tenderness Neurological exam: Present: alert, oriented X3, CN II-XII intact Skin exam: Present: warm, dry, intact, normal color. Absent: rash Course Vital Signs 12/13/23 12/13/23 10:15 11:48 Temperature 98.1 F Pulse Rate 67 63 Respiratory 18 18 Rate Blood Pressure 170/77 157/79 O2 Sat by Pulse 98 97 Oximetry Medical Decision Making - Medical Decision Making Was pt. sent in by a medical professional or institution (, PA, EYEDOTTER, urgent care, hospital, or longterm...) When possible be specific @ -No Did you speak to anyone other than the patient for history (EMS, parent, family, police, friend...)? What history was obtained from this source @ -Daughter aiding with PMHx Did you review nursing and triage notes (agree or disagree)? Why? @ -I reviewed and agree with nursing and triage notes Were old charts reviewed (outside hosp., previous admission, EMS record, old EKG, old radiological studies, urgent care reports/EKG's, longterm records)? Report findings @ -No old charts were reviewed Differential Diagnosis (chest pain, altered mental status, abdominal pain women, abdominal pain men, vaginal bleeding, weakness, fever, dyspnea, syncope, headache, dizziness, GI bleed, back pain, seizure, CVA, palpatations, mental health, musculoskeletal)? @ -Differential Dizziness: Benign paroxysmal positional Vertigo, Menieres disease, otitis media, acoustic neuroma, vertebrobasilar insufficiency, c erebellar stroke, encephalitis, hypovolemic, arrhythmia, coronary artery syndrome, anemia, this is not meant to be an all-inclusive list EKG interpreted by me (3pts min.). @ -As above X-rays interpreted by me (1pt min.). @ -Chest xray interpreted by me significant for mild pulmonary vascular conge stion. CT interpreted by me (1pt min.). @ -CT brain negative for acute intracranial process. Small remote lacunar infarct in the right caudate nucleus. U/S interpreted by me (1pt. min.). @ -None done What testing was considered but not performed or refused? (CT, X-rays, U/S, labs)? Why? @ -None What meds were considered but not given or refused? Why? @ -None Did you discuss the management of the patient with other professionals (professionals i.e. , PA, EYEDOTTER, lab, RT, psych nurse, elementary school social worker, intellectual property lawyer, teacher, credit administration officer, caseworker protective services)? Give summary @ -No Was smoking cessation discussed for >3mins.? @ -No Was critical care preformed (if so, how long)? @ -No Were there social determinants of health that impacted care today? How? (Homelessness, low income, unemployed, alcoholism, drug addiction, transportation, low edu. Level, literacy, decrease access to med. care, prison, re hab)? @ -No Was there de-escalation of care discussed even if they declined (Discuss DNR or withdrawal of care, Hospice)? DNR status @ -No What co-morbidities impacted this encounter? (DM, HTN, Smoking, COPD, CAD, Cancer, CVA, ARF, Chemo, Hep., AIDS, mental health diagnosis, sleep apnea, morbid obesity)? @ -CKD, hypertension Was patient admitted / discharged? Hospital course, mention meds given and route, prescriptions, significant lab abnormalities, going to OR and other pertinent info. @ -Discharge. 78-year-old female presenting to the ER with a chief complaint of dizziness. History and physical exam completed. Vitals upon arrival significant for temperature 98.1, heart rate 67, respiratory rate 18, blood pressure 170/77, oxygen saturation 98% on room air. Patient with signs of acute distress and nontoxic-appearing. No acute neurological findings on exam. Normal heart sounds. Lung sounds clear to auscultation bilaterally. No peripheral edema bilaterally on exam. Laboratory studies obtained significant for BUN 53, creatinine 2.98 with a GFR 14 this is chronic as patient has CKD and is refusing dialysis. Troponin less than 0.012. Urinalysis without evidence o f infection. EKG showing a normal sinus rhythm with no acute ST segment or T wave abnormalities. Chest x-ray interpreted by me significant for mild pulmonary vascular congestion which may be correlated to patient's chronic kidney disease. Patient does take Lasix daily. CT brain negative for acute process. Upon reevaluation, patient in no signs of acute distress and denying current dizziness. Results discussed with patient, all questions answered. Symptoms believed to be due to vertigo as exacerbated with positional changes. Meclizine prescribed. I advised close follow-up with PCP. Strict return parameters discussed. Patient discharged in stable condition. Patient and family verbally expressed understanding and agreement with care plan. Case discussed with ED attending, Dr. Alcazar. Undiagnosed new problem with uncertain prognosis? @ -No Drug Therapy requiring intensive monitoring for toxicity (Heparin, Nitro, Insulin, Cardizem)? @ -No Were any procedures done? @ -No Diagnosis/symptom? @ -Vertigo/CKD Acute, or Chronic, or Acute on Chronic? @ -Acute Uncomplicated (without systemic symptoms) or Complicated (systemic symptoms)? @ -Uncomplicated Side effects of treatment? @ -No Exacerbation, Progression, or Severe Exacerbation? @ -No Poses a threat to life or bodily function? How? (Chest pain, [place], LA, pneumonia, PE, COPD, DKA, ARF, appy, cholecystitis, CVA, Diverticulitis, Homicidal, Suicidal, threat to staff... and all critical care pts) @ -No - Lab Data Result diagrams: 12/13/23 11:10 12/13/23 11:10 Lab Results 12/13/23 12/13/23 12/13/23 Range/Units 11:10 11:10 11:10 WBC 7.4 (3.8-10.6) k/uL RBC 4.16 (3.80-5.40) m/uL Hgb 12.6 (11.4-16.0) gm/dL Hct 39.8 (34.0-46.0) % MCV 95.8 (80.0-100.0) fL MCH 30.2 (25.0-35.0) pg MCHC 31.5 (31.0-37.0) g/dL RDW 14.7 (11.5-15.5) % Plt Count 207 (150-450) k/uL MPV 7.6 Neutrophils % 74 % Lymphocytes % 18 % Monocytes % 4 % Eosinophils % 3 % Basophils % 1 % Neutrophils # 5.5 (1.3-7.7) k/uL Lymphocytes # 1.3 (1.0-4.8) k/uL Monocytes # 0.3 (0-1.0) k/uL Eosinophils # 0.2 (0-0.7) k/uL Basophils # 0.0 (0-0.2) k/uL PT (10.0-12.5) sec INR (<1.2) APTT (22.0-30.0) sec Sodium 138 (137-145) mmol/L Potassium 4.3 (3.5-5.1) mmol/L Chloride 107 (98-107) mmol/L Carbon Dioxide 26 (22-30) mmol/L Anion Gap 5 mmol/L BUN 53 H (7-17) mg/dL Creatinine 2.98 H (0.52-1.04) mg/dL Est GFR (CKD-EPI)AfAm 17 (>60 ml/min/1.73 sqM) Est GFR (CKD-EPI)NonAf 14 (>60 ml/min/1.73 sqM) Glucose 117 H (74-99) mg/dL Calcium 9.9 (8.4-10.2) mg/dL Total Bilirubin 0.6 (0.2-1.3) mg/dL AST 14 (14-36) U/L ALT 10 (4-34) U/L Alkaline Phosphatase 81 (38-126) U/L Troponin I (0.000-0.034) ng/mL Total Protein 7.2 (6.3-8.2) g/dL Albumin 4.1 (3.5-5.0) g/dL Urine Color Colorless Urine Appearance Clear (Clear) Urine pH 5.0 (5.0-8.0) Ur Specific [place] 1.006 (1.001-1.035) Urine Protein Negative (Negative) Urine Glucose (UA) Negative (Negative) Urine Ketones Negative (Negative) Urine Blood Negative (Negative) Urine Nitrite Negative (Negative) Urine Bilirubin Negative (Negative) Urine Urobilinogen <2.0 (<2.0) mg/dL Ur Leukocyte Esterase Negative (Negative) 12/13/23 12/13/23 Range/Units 11:10 11:10 WBC (3.8-10.6) k/uL RBC (3.80-5.40) m/uL Hgb (11.4-16.0) gm/dL Hct (34.0-46.0) % MCV (80.0-100.0) fL MCH (25.0-35.0) pg MCHC (31.0-37.0) g/dL RDW (11.5-15.5) % Plt Count (150-450) k/uL MPV Neutrophils % % Lymphocytes % % Monocytes % % Eosinophils % % Basophils % % Neutrophils # (1.3-7.7) k/uL Lymphocytes # (1.0-4.8) k/uL Monocytes # (0-1.0) k/uL Eosinophils # (0-0.7) k/uL Basophils # (0-0.2) k/uL PT 10.0 (10.0-12.5) sec INR 0.9 (<1.2) APTT 24.3 (22.0-30.0) sec Sodium (137-145) mmol/L Potassium (3.5-5.1) mmol/L Chloride (98-107) mmol/L Carbon Dioxide (22-30) mmol/L Anion Gap mmol/L BUN (7-17) mg/dL Creatinine (0.52-1.04) mg/dL Est GFR (CKD-EPI)AfAm (>60 ml/min/1.73 sqM) Est GFR (CKD-EPI)NonAf (>60 ml/min/1.73 sqM) Glucose (74-99) mg/dL Calcium (8.4-10.2) mg/dL Total Bilirubin (0.2-1.3) mg/dL AST (14-36) U/L ALT (4-34) U/L Alkaline Phosphatase (38-126) U/L Troponin I <0.012 (0.000-0.034) ng/mL Total Protein (6.3-8.2) g/dL Albumin (3.5-5.0) g/dL Urine Color Urine Appearance (Clear) Urine pH (5.0-8.0) Ur Specific [place] (1.001-1.035) Urine Protein (Negative) Urine Glucose (UA) (Negative) Urine Ketones (Negative) Urine Blood (Negative) Urine Nitrite (Negative) Urine Bilirubin (Negative) Urine Urobilinogen (<2.0) mg/dL Ur Leukocyte Esterase (Negative) - EKG Data -: EKG Interpreted by Me EKG Comments: EKG taken at 10: 31 showing a normal sinus rhythm with no acute ST segment or T wave abnormalities. Ventricular rate 67, AR interval 167, QRS duration 86, QT/QTc 406/422. - Radiology Data Radiology results: report reviewed, image reviewed Disposition Clinical Impression: Vertigo, Chronic kidney disease Disposition: HOME SELF-CARE Condition: Stable Instructions (If sedation given, give patient instructions): Vertigo (ED) Additional Instructions: Please follow-up with PCP. Return to the ER for any new or worsening concerns. Prescriptions: Meclizine [Antivert] 25 mg PO TID PRN #15 tab PRN Reason: Vertigo Is patient prescribed a controlled substance at d/c from ED?: No Referrals: César Sidhu MD [Primary Care Provider] - 1-2 days Time of Disposition: 11:56
[2023-12-13 10:55] VITALS: RESP 18; TEMP 98.1
[2023-12-13 11:20] LABS: Basophils % (A) 1 %; Eosinophils # (A) 0.2 k/uL (0-0.7); Eosinophils % (A) 3 %; HCT 39.8 % (34.0-46.0); HGB 12.6 gm/dL (11.4-16.0); Lymphocytes # (A) 1.3 k/uL (1.0-4.8); Lymphocytes % (A) 18 %; MCH 30.2 pg (25.0-35.0); MCHC 31.5 g/dL (31.0-37.0); MCV 95.8 fL (80.0-100.0); Mean Platelet Volume 7.6; Monocytes # (A) 0.3 k/uL (0-1.0); Monocytes % (A) 4 %; Neutrophils # (A) 5.5 k/uL (1.3-7.7); Neutrophils % (A) 74 %; Platelet Count 207 k/uL (150-450); RBC 4.16 m/uL (3.80-5.40); RDW 14.7 % (11.5-15.5); WBC 7.4 k/uL (3.8-10.6)
[2023-12-13 11:29] LABS: ALT 10 U/L (4-34); AST 14 U/L (14-36); African American GFR (CKD) 17 (>60 ml/min/1.73 sqM); Albumin 4.1 g/dL (3.5-5.0); Alkaline Phosphatase 81 U/L (38-126); Anion Gap 5 mmol/L; Blood Urea Nitrogen 53 mg/dL (7-17); Calcium 9.9 mg/dL (8.4-10.2); Carbon Dioxide 26 mmol/L (22-30); Chloride 107 mmol/L (98-107); Glucose 117 mg/dL (74-99); Non-African American GFR(CKD) 14 (>60 ml/min/1.73 sqM); Potassium 4.3 mmol/L (3.5-5.1); Sodium 138 mmol/L (137-145); Total Bilirubin 0.6 mg/dL (0.2-1.3); Total Protein 7.2 g/dL (6.3-8.2)
--- NOTE | 2023-12-13 11:34 | CT ---
EXAMINATION TYPE: CT brain wo con DATE OF EXAM: 12/13/2023 COMPARISON: None HISTORY: Dizziness x several days CT DLP: 1182.4 mGycm Automated exposure control for dose reduction was used. Findings: The ventricles, basal cisterns and sulci over the convexities are within normal limits for the patien t's age and there is no mass effect or shift of midline structures. There is a tiny remote lacunar infarct in the right caudate nucleus. There is no acute intra or extra -axial hemorrhage The posterior fossa including the brainstem, fourth ventricle and cerebellar pontine angles appear no rmal. Intraorbital contents appear normal and symmetric. Visualized paranasal sinuses and mastoid air cells are well aerated. The calvarium is intact. IMPRESSION: 1. No acute bleed or mass effect. 2. Mild generalized atrophy appropriate for patient's age. 3. Small remote lacunar infarct in the right caudate nucleus.
--- NOTE | 2023-12-13 11:35 | XR ---
EXAMINATION TYPE: XR chest 2V DATE OF EXAM: 12/13/2023 COMPARISON: NONE HISTORY: Dizziness TECHNIQUE: Frontal and lateral views of the chest are obtained. FINDINGS: There is mild pulmonary gastric congestion. The heart size is mildly prominent. There is no airspace consolidation. There is no pleural effusion or pneumothorax. No focal osseous abnormalities. IMPRESSION: Findings suggestive of mild CHF. Clinical correlation and short-term follow-up is recomm ended.
[2023-12-13 11:40] LABS: INR 0.9 (<1.2); Partial Thromboplastin Time 24.3 sec (22.0-30.0)
[2023-12-13 11:42] LABS: Appearance,Urine Clear (Clear); Bilirubin,Urine Negative (Negative); Blood,Urine Negative (Negative); Color,Urine Colorless; Glucose,Urine (UA) Negative (Negative); Ketones,Urine Negative (Negative); Leukocyte Esterase,Urine Negative (Negative); Nitrite,Urine Negative (Negative); Protein,Urine Negative (Negative); Specific Gravity,Urine 1.006 (1.001-1.035); Urobilinogen,Urine <2.0 mg/dL (<2.0)
[2023-12-13 12:34] VITALS: BP 157/79; PULSE 63
== END 2023-12-13 12:07 | disposition home or self-care (01) ==
LOC: EC 10:05
DX: R42 Dizziness and giddiness (principal); I12.9 Hypertensive chronic kidney disease with stage 1 through stage 4 chronic kidney disease, or unspecified chronic kidney disease; N18.9 Chronic kidney disease, unspecified; Z88.0 Allergy status to penicillin; Z87.891 Personal history of nicotine dependence; Z79.899 Other long term (current) drug therapy
CPT/HCPCS: 36415; 70450; 71046; 80053; 81003; 84484; 85025; 85610; 85730; 93005; 99284